=== PATIENT | female | born 1970 | race African-American/Black ===

== ENCOUNTER 2022-07-03 06:23 | Inpatient (IN) ==
[2022-07-03] MEDS ORDERED: NS 100 ML IV 100 ML ONE (06:40)
[2022-07-03] MEDS ORDERED: LR 1,000 ML IV 1,000 ML IV ONE (06:40)
[2022-07-03] MEDS ORDERED: ANCEF VIAL 1 GRAM ONE (06:40)
[2022-07-03 07:09] VITALS: BMI 30.4
[2022-07-03] MEDS ORDERED: FENTANYL VIAL INJ 100 mcg ONE (07:37)
[2022-07-03] MEDS ORDERED: VERSED ONE (07:37)
[2022-07-03] MEDS ORDERED: OFIRMEV IV 1000 MG VIAL 1,000 MG/100 ML VIAL IV ONE (07:38)
[2022-07-03] MEDS ORDERED: DIPRIVAN VIAL 20 ML ONE (07:38)
[2022-07-03] MEDS ORDERED: PEPCID 20 MG VIAL ONE (07:38)
[2022-07-03] MEDS ORDERED: ZOFRAN INJ 4 MG VIAL ONE (07:38)
[2022-07-03] MEDS ORDERED: PRECEDEX INJ VIAL IVP ONE (07:38)
[2022-07-03] MEDS ORDERED: XYLOCAINE 2 % (PLAIN) ONE (07:38)
[2022-07-03] MEDS ORDERED: DECADRON INJ ONE (07:38)
[2022-07-03] MEDS ORDERED: MARCAINE 0.5% ONE (07:49)
[2022-07-03] MEDS ORDERED: MARCAINE/EPINEPHRINE ONE (07:49)
[2022-07-03] MEDS ORDERED: BETADINE SOLN ONE (07:50)
[2022-07-03] MEDS ORDERED: ULTANE GAS IN ONE (07:57)
[2022-07-03] MEDS ORDERED: KETAMINE HCL ONE (07:57)
[2022-07-03] MEDS ORDERED: VENTOLIN or PROAIR HFA ONE (07:57)
[2022-07-03] MEDS ORDERED: NEO-SYNEPHRINE INJ ONE (08:26)
[2022-07-03] MEDS ORDERED: REGLAN INJ 10 MG VIAL ONE (08:26)
[2022-07-03] MEDS ORDERED: DILAUDID INJ ONE ×2 (08:34→10:08)
[2022-07-03] MEDS ORDERED: BRIDION ONE (08:34)
[2022-07-03] MEDS ORDERED: ZEMURON 100 MG VIAL ONE (08:34)
[2022-07-03] MEDS ORDERED: BREVIBLOC ONE (08:38)
[2022-07-03] MEDS ORDERED: ATROPINE SULFATE ONE (09:00)
[2022-07-03] MEDS ORDERED: LACRI-LUBE S.O.P. ONE (09:19)
[2022-07-03] MEDS ORDERED: DUONEB 0.5 MG/3 MG (3 mL) NEB ONE (09:29)
--- NOTE | 2022-07-03 09:37 | OR.IMMED ---
IMMEDIATE POST-OP NOTE Immediate Post-Op Note Pre-Op Diagnosis: Left ankle ,infected hardware, S/P XRT and resection for lymp melania left ankle. Post-Op Diagnosis: same Procedure: left below knee amputation Description of Procedure: see operative summary Surgeon/Sleeve Presser Operator: Zoltan Findings: as above Estimated Blood Loss: 300 cc Complications: none Progress Notes: Admit for pain control Final Diagnosis: as above
[2022-07-03] MEDS ORDERED: PERCOCET TAB 5/325 MG PO PRN (09:41)
[2022-07-03] MEDS ORDERED: BENADRYL INJ 50 MG VIAL IVP PRN (09:42)
[2022-07-03] MEDS ORDERED: BARHEMSYS INJ IVP PRN (09:42)
[2022-07-03] MEDS ORDERED: PHENERGAN INJ 25 MG IM PRN (09:42)
[2022-07-03] MEDS: DILAUDID INJ IVP PRN ×4 (10:09→21:31)
[2022-07-03] MEDS: LR 1,000 ML IV 1,000 ML IV SCH ×3 (10:24→23:00)
[2022-07-04] MEDS: LR 1,000 ML IV 1,000 ML IV SCH (02:28)
[2022-07-04] MEDS: DILAUDID INJ IVP PRN (02:29)
[2022-07-04 06:06] LABS: BASOPHILS % (AUTO) 0.1 % (0.2-1.0); HEMATOCRIT 23.2 % (36.0-47.0); HEMOGLOBIN 7.8 g/dL (12.0-16.0); LYMPHOCYTES # (AUTO) 0.5 X10^3/uL (1.3-2.9); LYMPHOCYTES % (AUTO) 5.5 % (21.0-51.0); MEAN CORPUSCULAR HEMOGLOBIN 24.1 pg (27.0-34.0); MEAN CORPUSCULAR HGB CONC 33.8 g/dL (33.0-35.0); MEAN CORPUSCULAR VOLUME 71.5 fL (80.0-100.0); MEAN PLATELET VOLUME 7.3 fL (7.4-11.0); MONOCYTES # (AUTO) 0.6 x10^3/uL (0.3-0.8); NEUTROPHILS # (AUTO) 8.9 x10^3/uL (2.2-4.8); NEUTROPHILS % (AUTO) 88.4 % (42.0-75.0); RED BLOOD COUNT 3.25 X10^6/uL (3.5-5.4); RED CELL DISTRIBUTION WIDTH 17.1 % (11.6-16.5)
[2022-07-04 06:50] LABS: PLATELET MORPHOLOGY COMMENT NORMAL (NORMAL)
[2022-07-04 06:51] LABS: ANISOCYTOSIS SLIGHT; MICROCYTOSIS SLIGHT; TARGET CELLS SLIGHT
[2022-07-04] MEDS ORDERED: LOVENOX INJ 40 MG SYR SC SCH (09:00)
--- NOTE | 2022-07-04 09:49 | W.DIS.FURT ---
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 Subsequently she had resection of the tumor with internal fixation with a tibial chon and plates. She developed a wound infection with probable osteomyelitis of the ankle. Instead of proceeding with extensive and long standing procedures which may not work, she has elected to proceed with a left leg below knee amputation. That was done without complication and she is doing well. She will be discharged today with the dressing in place on her usual medications plus Percocet, 5 mg tablets every 6 hours PRN pain. I will see her at in the office in one week. At that time we will place a [employer]- tech device help mold the below knee stump. Vital Signs: Vital Signs (72 hours) 07/03/22 06:26 07/03/22 07:12 07/03/22 08:34 Temperature 97.3 F L Pulse Rate 89 Pulse Rate [Left Brachial] Respiratory Rate 18 20 Blood Pressure 138/78 Blood Pressure [Left Arm] O2 Sat by Pulse Oximetry 100 Oxygen Delivery Method Room Air Room Air Oxygen Flow Rate 07/03/22 09:31 07/03/22 09:46 07/03/22 09:36 Temperature 97.1 F L Pulse Rate 103 H 116 H 105 H Pulse Rate [Left Brachial] Respiratory Rate 18 18 18 Blood Pressure 104/71 112/61 108/65 Blood Pressure [Left Arm] O2 Sat by Pulse Oximetry 100 100 100 Oxygen Delivery Method Aerosol Face Tent Aerosol Face Tent Aerosol Face Tent Oxygen Flow Rate 07/03/22 09:41 07/03/22 09:51 07/03/22 09:56 Temperature Pulse Rate 109 H 117 H 123 H Pulse Rate [Left Brachial] Respiratory Rate 18 18 18 Blood Pressure 108/62 112/63 109/60 Blood Pressure [Left Arm] O2 Sat by Pulse Oximetry 100 100 94 L Oxygen Delivery Method Aerosol Face Tent Aerosol Face Tent Nasal Cannula Oxygen Flow Rate 07/03/22 10:01 07/03/22 10:09 07/03/22 10:15 Temperature Pulse Rate 121 H Pulse Rate [Left Brachial] Respiratory Rate 18 18 Blood Pressure 109/60 Blood Pressure [Left Arm] O2 Sat by Pulse Oximetry 98 Oxygen Delivery Method Nasal Cannula Nasal Cannula Oxygen Flow Rate 2 07/03/22 10:14 07/03/22 10:39 07/03/22 10:43 Temperature Pulse Rate Pulse Rate [Left Brachial] Respiratory Rate 18 18 18 Blood Pressure Blood Pressure [Left Arm] O2 Sat by Pulse Oximetry Oxygen Delivery Method Oxygen Flow Rate 07/03/22 10:20 07/03/22 10:35 07/03/22 10:50 Temperature 97.3 F L 97.2 F L Pulse Rate Pulse Rate [Left Brachial] 117 H 113 H 110 H Respiratory Rate 16 18 18 Blood Pressure Blood Pressure [Left Arm] 110/57 102/56 104/57 O2 Sat by Pulse Oximetry 99 99 100 Oxygen Delivery Method Oxygen Flow Rate 07/03/22 11:05 07/03/22 11:20 07/03/22 12:20 Temperature 97.2 F L Pulse Rate Pulse Rate [Left Brachial] 108 H 103 H 103 H Respiratory Rate 18 18 18 Blood Pressure Blood Pressure [Left Arm] 92/53 104/55 97/54 O2 Sat by Pulse Oximetry 99 100 100 Oxygen Delivery Method Oxygen Flow Rate 07/03/22 13:20 07/03/22 14:20 07/03/22 15:20 Temperature 97.9 F Pulse Rate Pulse Rate [Left Brachial] 101 H 100 H 102 H Respiratory Rate 18 18 18 Blood Pressure Blood Pressure [Left Arm] 105/68 106/57 110/61 O2 Sat by Pulse Oximetry 98 97 98 Oxygen Delivery Method Oxygen Flow Rate 07/03/22 17:23 07/03/22 17:53 07/03/22 19:00 Temperature Pulse Rate Pulse Rate [Left Brachial] Respiratory Rate 18 18 Blood Pressure Blood Pressure [Left Arm] O2 Sat by Pulse Oximetry Oxygen Delivery Method Nasal Cannula Oxygen Flow Rate 2 07/03/22 19:50 07/03/22 21:31 07/03/22 22:01 Temperature 98.4 F Pulse Rate Pulse Rate [Left Brachial] 96 H Respiratory Rate 20 18 18 Blood Pressure Blood Pressure [Left Arm] 110/57 O2 Sat by Pulse Oximetry 98 Oxygen Delivery Method Room Air Oxygen Flow Rate 07/03/22 23:55 07/04/22 02:29 07/04/22 02:59 Temperature 98.5 F Pulse Rate Pulse Rate [Left Brachial] 91 H Respiratory Rate 20 18 18 Blood Pressure Blood Pressure [Left Arm] 111/58 O2 Sat by Pulse Oximetry 98 Oxygen Delivery Method Room Air Oxygen Flow Rate 07/04/22 03:52 07/04/22 07:00 07/04/22 08:00 Temperature 99.1 F 99.5 F Pulse Rate Pulse Rate [Left Brachial] 98 H 110 H Respiratory Rate 20 20 Blood Pressure Blood Pressure [Left Arm] 117/59 132/68 O2 Sat by Pulse Oximetry 97 98 Oxygen Delivery Method Nasal Cannula Room Air Room Air Oxygen Flow Rate 2 07/04/22 08:40 Temperature Pulse Rate Pulse Rate [Left Brachial] Respiratory Rate 20 Blood Pressure Blood Pressure [Left Arm] O2 Sat by Pulse Oximetry Oxygen Delivery Method Oxygen Flow Rate Labs: Laboratory Last Values WBC 10.0 X10^3/uL (3.6-10.0) 07/04/22 05:40 RBC 3.25 X10^6/uL (3.5-5.4) L 07/04/22 05:40 Hgb 7.8 g/dL (12.0-16.0) L 07/04/22 05:40 Hct 23.2 % (36.0-47.0) L 07/04/22 05:40 MCV 71.5 fL (80.0-100.0) L 07/04/22 05:40 MCH 24.1 pg (27.0-34.0) L 07/04/22 05:40 MCHC 33.8 g/dL (33.0-35.0) 07/04/22 05:40 RDW 17.1 % (11.6-16.5) H 07/04/22 05:40 Plt Count 316 X10^3/uL (150.0-450.0) 07/04/22 05:40 Plt Count Comment Adequate (ADEQUATE) 07/04/22 05:40 MPV 7.3 fL (7.4-11.0) L 07/04/22 05:40 Neut % (Auto) 88.4 % (42.0-75.0) H 07/04/22 05:40 Lymph % (Auto) 5.5 % (21.0-51.0) L 07/04/22 05:40 Cooper % (Auto) 6.0 % (0.0-13.0) 07/04/22 05:40 Eos % (Auto) 0.0 % (0.9-2.9) L 07/04/22 05:40 Baso % (Auto) 0.1 % (0.2-1.0) L 07/04/22 05:40 Neut # (Auto) 8.9 x10^3/uL (2.2-4.8) H 07/04/22 05:40 Lymph # (Auto) 0.5 X10^3/uL (1.3-2.9) L 07/04/22 05:40 Cooper # (Auto) 0.6 x10^3/uL (0.3-0.8) 07/04/22 05:40 Eos # (Auto) 0.0 x10^3/uL (0.0-0.2) 07/04/22 05:40 Baso # (Auto) 0.0 X10^3/uL (0.0-0.1) 07/04/22 05:40 Absolute Nucleated RBC 0.0 /100WBC 07/04/22 05:40 Plt Morphology Comment Normal (NORMAL) 07/04/22 05:40 RBC Morphology Abnormal (NORMAL) A 07/04/22 05:40 Anisocytosis Slight A 07/04/22 05:40 Microcytosis Slight A 07/04/22 05:40 Target Cells Slight A 07/04/22 05:40 Tissue Pathology To follow 07/03/22 08:55 Reason For Visit: AMPUTATION Discharge Diagnosis All Active Problems (Updated 07/04/22 @ 09:48 by Mauro Charlton) Primary lymphoma of bone (Acute) Ankle osteomyelitis, left (Acute) Plan of Treatment: Continue with present treatment and follow up plan. Pt is to keep follow up appointment as instructed and take medications as ordered. 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 Subsequently she had resection of the tumor with internal fixation with a tibial chon and plates. She developed a wound infection with probable osteomyelitis of the ankle. Instead of proceeding with extensive and long standing procedures which may not work, she has elected to proceed with a left leg below knee amputation. That was done without complication and she is doing well. She will be discharged today with the dressing in place on her usual medications plus Percocet, 5 mg tablets every 6 hours PRN pain. I will see her at in the office in one week. At that time we will place a [employer]- tech device help mold the below knee stump. Patient Disposition: 01 HOME, SELF-CARE Condition: Stable Health Concerns: Post Hospitalization: new medications and changes needed to prevent readmission or further decline. Pt educated and given instructions on all concerns. Care Plan Goals: Ambulation with walker and eventually be fitted for a below knee prosthesis. Plan of Treatment: Continue with present treatment and follow up plan. Pt is to keep follow up appointment as instructed and take medications as ordered. Assessment: See [facility] Prescription drug monitoring program results: PDMP reviewed and no concerns identified Prescriptions: Continued hydrocodone-acetaminophen 10-325 mg tablet 1 tab PO Q6HR Follow ups/Referrals Follow ups/Referrals: Mauro Charlton [STAFF PHYSICIAN] - 1 WEEK Instructions Instructions: Stump and Prosthesis Care, Living With an Amputation, Phantom Limb Pain, Gangrene Stand Alone Forms: Excuse From Work or School, Precautions for [place] [id number], [facility], Patient Portal, Social Distancing
[2022-07-04 12:47] VITALS: BP 151/73
--- NOTE | 2022-07-05 11:07 | DR.OPNOTE ---
OP NOTE Pre-Op Diagnosis: osteomyelitis left ankle, exposed hardware, hx lymphoma of left ankle Post-Op Diagnosis: same Procedure Date Date Of Procedure: 07/03/22 Procedure: PROCEDURE: LEFT BELOW KNEE AMPUTATION. NARRATIVE: The patient was taken to the operating room and placed in the supine position and general anesthesia induced. LMA place for airway control . Left leg prepped and draped in sterile fashion. Time out for the procedure obtained. Dog legged type position incision made below the knee with the transverse component one and 1/2 hands breadth below the inferior insertion of the patellar tendon. Muscle of anterior compartment divided down to the the anterior tibial artery . The anterior tibial artery divided between clamps and tied with 2-0 silk suture ligatures. Medial and lateral muscles of the incision divided with elec trocautery. Periosteum of the tibial elevated with periosteal elevator. Tibia divided with the Gigli saw. Fibula divided with the bone cutter. Amputation knife used to complete the amputation. Posterior tibial artery and peroneal arteries clamped and tied with 2-0 silk suture ligatures . The two flaps closed with interrupted 0 Vicryl suture ligatures . Skin closed with skin deepa. Dressing applied . Type of Anesthesia: General Anesthetic w/ETT (With LMA) Findings: as above Specimen/Pathology: left below knee amputation Type of Fluids Used:: Lactated Ringers EBL: 200 cc Complications:: none Needle/Sponge Count:: correct Disposition/Condition: Pt. tolerated procedure without difficulty. Extubated in the OR and taken to PACU in stable condition.
== END 2022-07-04 13:10 | disposition home health service (06) | DRG 824 ==
LOC: MED/SURG 06:23
PROVIDERS: ADMIT Surgery; ATTEND Surgery
DX: C85.85 Other specified types of non-Hodgkin lymphoma, lymph nodes of inguinal region and lower limb; Z92.21 Personal history of antineoplastic chemotherapy; M86.172 Other acute osteomyelitis, left ankle and foot